=== PATIENT | female | born 1985 | race Caucasian/White ===

== ENCOUNTER 2016-09-29 13:59 | Inpatient (IN) | payer OTHER ==
[2016-09-29 15:41] LABS: ALB/GLOB RATIO 0.9 (>1.0); ALBUMIN 3.2 gm/dL (3.5-5.7); CALCIUM 9.7 mg/dL (8.6-10.3)
[2016-09-29 15:51] LABS: CREATININE,RANDOM URINE 277 mg/dL
--- NOTE | 2016-09-29 16:35 | HP ---
DELBERT VENTURA [id number] DATE OF ADMISSION: 09/29/2016 ADMITTING DIAGNOSIS: Intrauterine at 36 weeks, with hypertension and diabetes. HISTORY OF PRESENT ILLNESS: The patient is a 31-year-old G-6, P-5 woman, with an EDC of 10/28/2016, currently at 35 weeks and six days. She has a history of gestational diabetes for which she is on medicines and chronic hypertension for which she is on medicine. She was transferred to [place] at 28 weeks gestation. Her blood pressures in the last two days have been 150/100 to 160/95. She states this week she has not felt well. Her glucoses are doing okay and all of her blood work looked okay, with the exception of her ALT and AST which were both elevated. Because of her increasing hypertension, her diabetes and now elevated liver enzymes, I have recommended that we admit her for further evaluation. PAST MEDICAL HISTORY: 1. Hypertension. 2. Diabetes. 3. Obesity. CURRENT MEDICATIONS: She is on: 1. Labetalol 200 mg three times a day. 2. Glyburide 5 mg twice a day. 3. Metformin 500 mg twice a day. Her glucoses have been fairly well-controlled. 4. Levothyroxine 125 mcg. 5. Sertraline 100 mg a day. 6. Zyrtec 10 mg a day. ALLERGIES: She is allergic to: 1. Penicillin, causing anaphylaxis. 2. Codeine, causing itching. PAST SURGICAL HISTORY: None. OB HISTORY: Five vaginal deliveries, weighing most of them eight to nine pounds. Her gestational age is based on ultrasounds from her previous provider. REVIEW OF SYSTEMS: Patient denies fever, chills, nausea, vomiting, diarrhea or constipation. SOCIAL HISTORY: The patient is Armenian-speaking. She does not use alcohol or smoke. PHYSICAL EXAMINATION: GENERAL: She is a heavy-set woman, weighing over 300 pounds. HEENT: Normal. LUNGS: Clear. HEART: Normal S1, S2. ABDOMEN: Soft. PELVIC: Uterus is nontender. Fundal height of 47 cm. Good heart tones. Her cervix is 1 cm and soft. EXTREMITIES: Normal reflexes. She does have some pedal edema. IMPRESSION: A patient with hypertension, obesity and diabetes, now with worsening symptoms and elevated liver enzymes. PLAN: To admit for evaluation for preeclampsia. We will also do a biophysical profile and an ultrasound.
--- NOTE | 2016-09-29 16:45 | US ---
Exams: Biophysical profile ultrasound, limited obstetric ultrasound follow-up COMPARISON: None INDICATION: Decreased movement, diabetes and hypertension. EGA 35 weeks 6 days. Findings: Limited obstetric ultrasound and biophysical profile was obtained. Real-time sonographic imaging demonstrated a single live intrauterine in cephalic presentation with a heart rate of 141 bpm. MIKE is 14.5 cm. Measurements of the fetus are as follows: BPD: 9.0 cm, 36 weeks 4 days HC: 35.2 cm, 41 weeks 1 day AC: 34.0 cm, 37 weeks 6 days FL: 7.2 cm, 36 weeks 6 days This combines for a mean gestational age by ultrasound for 38 weeks 1 day and a sonographic SUSIE of 10/12/2016. Estimated weight is 3320 g +/- 498 g which is greater than the 90th percentile based on clinical dating. Biophysical profile is as follows: breathing movements: 0 motion: 2 tone: 2 Amniotic fluid volume: 2 Total score 6 out of 8. IMPRESSION: 1. Biophysical profile score is 6 out of 8, score of 0 for breathing movements. 2. Single live anterior in cephalic presentation with a heart rate of 141 bpm. 3. Mean gestational age of 38 weeks 1 day and a sonographic SUSIE of 10/12/2016. 4. Estimated weight is at the greater than 90th percentile based on clinical dating. 5. MIKE 14.6 cm. Message was left for patient's nurse Amanda at the [facility] at 1640 hours 09/29/2016.
[2016-09-29 18:02] VITALS: BMI 63.7
[2016-09-29] MEDS: GLYBURIDE 5 MG TABLET PO SCH ×2 (18:15→21:39)
[2016-09-29] MEDS: METFORMIN HCL 500 MG TABLET PO SCH (21:39)
[2016-09-29] MEDS: LABETALOL HCL 200 MG TABLET PO SCH (21:39)
[2016-09-29] MEDS ORDERED: INSULIN REGULAR HUMAN (DOSE) 100 UNITS/1 ML SUB-Q ONE (22:07)
[2016-09-30 07:24] LABS: ALB/GLOB RATIO 0.9 (>1.0); CALCIUM 9.3 mg/dL (8.6-10.3)
[2016-09-30] MEDS ORDERED: LEVOTHYROXINE SODIUM 125 MCG TABLET PO SCH (07:30)
[2016-09-30] MEDS: GLYBURIDE 5 MG TABLET PO SCH (07:42)
[2016-09-30] MEDS: METFORMIN HCL 500 MG TABLET PO SCH (08:08)
[2016-09-30] MEDS: LABETALOL HCL 200 MG TABLET PO SCH ×2 (08:08→18:05)
[2016-09-30] MEDS ORDERED: SERTRALINE HCL 50 MG TABLET PO SCH (09:00)
[2016-09-30] MEDS ORDERED: ACETAMINOPHEN 325 MG TABLET PO PRN (11:48)
[2016-09-30] MEDS ORDERED: LABETALOL HCL 200 MG TABLET PO ONE (12:23)
[2016-09-30] MEDS ORDERED: LACTATED RINGERS 1,000 ML ONE (13:15)
[2016-09-30] MEDS ORDERED: IV START KIT ONE (13:15)
[2016-09-30] MEDS ORDERED: MAGNESIUM SULFATE 4 G/100 ML 100 ML IV ONE (13:16)
[2016-09-30] MEDS ORDERED: PUMP TUBING ONE ×2 (13:16→13:19)
[2016-09-30] MEDS ORDERED: MAGNESIUM SULFATE 4 G/100 ML 4 G in PREMIX BAG 1 EACH IV ONE (13:19)
[2016-09-30] MEDS ORDERED: MAGNESIUM SULFATE 20 G/500 ML 500 ML IV SCH (13:30)
[2016-09-30] MEDS ORDERED: LACTATED RINGERS 1,000 ML IV SCH (13:30)
== END 2016-09-30 18:39 | disposition home or self-care (01) | DRG 781 ==
LOC: FBC 13:59 → FBCOUT 13:59 → UNDOADMOB 13:59 → EDSTATUS 14:39 → FBCOUT 17:17 → FBC 17:17 → UNDOADMOB 17:18 → FBC 17:18 → UNDODISOB 09-30 18:39
PROVIDERS: ADMIT Obstetrics & Gynecology; ATTEND Obstetrics & Gynecology
DX: O16.3 Unspecified maternal hypertension, third trimester (principal); Z3A.35 35 weeks gestation of pregnancy; O99.213 Obesity complicating pregnancy, third trimester; E66.9 Obesity, unspecified; O24.414 Gestational diabetes mellitus in pregnancy, insulin controlled